=== PATIENT | female | born 1960 | race Caucasian/White ===

== ENCOUNTER → 2020-09-20 | Outpatient (CLI) | payer BC | LOC: KOH-I 10:04 | DX: M25.562 Pain in left knee (principal); S83.282A Other tear of lateral meniscus, current injury, left knee, initial encounter; S83.242A Other tear of medial meniscus, current injury, left knee, initial encounter; M71.22 Synovial cyst of popliteal space [Baker], left knee; M25.462 Effusion, left knee; X58.XXXA Exposure to other specified factors, initial encounter | CPT/HCPCS: 73721 ==

== ENCOUNTER → 2021-11-29 | Outpatient (CLI) | payer BC | LOC: EXRD 11:05 | DX: M79.662 Pain in left lower leg (principal); M79.661 Pain in right lower leg | CPT/HCPCS: 93970 ==